=== PATIENT | male | born 1980 | race Caucasian/White ===

== ENCOUNTER 2018-03-26 20:50 | Emergency (ER) | payer SELFPAY ==
[~2018-03-26] VITALS: Ht 170.2 cm; Wt 68.2 kg
[2018-03-26 20:55] VITALS: Ht 170.2 cm; Wt 68.2 kg
[2018-03-26] MEDS ORDERED: KEFLEX500 MG PO (22:32)
[2018-03-26 22:40] VITALS: BP 122/79
== END 2018-03-26 22:40 | disposition home or self-care (01) ==
LOC: D.ER 20:50
DX: S51.812A Laceration without foreign body of left forearm, initial encounter (principal); Y04.2XXA Assault by strike against or bumped into by another person, initial encounter; Y93.89 Activity, other specified; Y92.89 Other specified places as the place of occurrence of the external cause